=== PATIENT | female | born 1990 | race American Indian/Alaskan Native ===

== ENCOUNTER 2021-01-22 17:32 | Emergency (ER) | payer MEDICAID ==
[2021-01-22 21:06] VITALS: BP 129/81
--- NOTE | 2021-01-22 21:09 | Emergency Department Report ---
Chief Complaint: Upper Respiratory Infection Stated Complaint: COVID SYMPTOMS - HPI History of Present Illness: 30-year-old -[place] female presents to the emergency room for headache, shortness of breath, decreased appetite, loss of taste and smell and diarrhea since Monday. Patient does not been tested for Covid. Patient recently traveled from [place] 2 days prior to Monday. MSE screening note: Focused history and physical exam performed. Due to findings the following was ordered: 30-year-old -[place] female presents to the emergency room for headache, shortness of breath, decreased appetite, loss of taste and smell and diarrhea since Monday. Patient does not been tested for Covid. Patient recently traveled from [place] 2 days prior to Monday. ED Disposition for MSE Disposition: DC-01 TO HOME OR SELFCARE Is pt being admited?: No Does the pt Need Aspirin: No Condition: Stable Instructions: COVID-19 Frequently Asked Questions, Prevent the Spread of COVID- 19 if You Are Sick - [facility] Additional Instructions: Your symptoms appear most consistent with a nonspecific viral syndrome. However, given this current pandemic, COVID-19 is in the differential of possibilities. I do recommend repeat outpatient Covid 19 testing. In the meantime, isolate/quarantine yourself and stay away from anyone who is elderly, immunocompromised or chronically ill. You can use ibuprofen every 6-8 hours and Tylenol every 4-8 hours, using the dosing on the back of the bottle, as needed f or any fever or body aches. Return to the emergency department with any worsening of your symptoms, development of chest pain or shortness of breath, or with any acute distress. Referrals: [facility] [Provider Group] - 3-5 Days your, Primary care provider. [Other] - 3-5 Days Forms: Work/School Release Form(ED)
== END 2021-01-22 21:20 | disposition home or self-care (01) ==
LOC: ED 17:32
DX: R51.9 Headache, unspecified (principal); R43.8 Other disturbances of smell and taste
CPT/HCPCS: 99281